=== PATIENT | male | born 1995 | race Caucasian/White ===

== ENCOUNTER 2020-11-16 04:27 | Inpatient (IN) ==
[2020-11-16 06:47] LABS: Influenza A PCR Negative (Negative); Influenza B PCR Negative (Negative); Resp. Syncytial Virus PCR Negative (Negative)
[2020-11-16 06:48] LABS: SARS-CoV-2 by PCR (In House) Negative (Negative)
[2020-11-16] MEDS ORDERED: *HR* LORazepam 1 MG TABLET PO PRN (11:15)
[2020-11-16] MEDS ORDERED: haloperidoL 5 MG TABLET PO PRN (11:15)
[2020-11-16] MEDS ORDERED: Mag Hydrox/Al Hydrox/Simeth 30 ML UDC PO PRN (11:15)
[2020-11-16] MEDS ORDERED: *HR* LORazepam 2 MG/ML VIAL IM PRN (11:15)
[2020-11-16] MEDS ORDERED: traZODone 50 MG TABLET PO PRN (11:15)
[2020-11-16] MEDS ORDERED: Acetaminophen 325 MG TABLET PO PRN (11:15)
[2020-11-16] MEDS ORDERED: hydrOXYzine pamoate 25 MG CAPSULE PO PRN (11:15)
[2020-11-16] MEDS ORDERED: Haloperidol Lactate 5 MG/ML VIAL IM PRN (11:15)
[2020-11-16] MEDS ORDERED: MOM Conc 10 ML UD.LIQ PO PRN (11:15)
[2020-11-17] MEDS: FLUoxetine HCl 10 MG CAPSULE PO SCH (10:18)
[2020-11-18] MEDS: FLUoxetine HCl 10 MG CAPSULE PO SCH (09:43)
[2020-11-19] MEDS: FLUoxetine HCl 10 MG CAPSULE PO SCH (08:27)
[2020-11-19 11:39] VITALS: BP 125/68; PULSE 67; TEMP 97.3; O2SAT 100
== END 2020-11-19 12:45 | disposition home or self-care (01) | DRG 751 ==
LOC: EMEROOARM 04:27 → 1ANU 09:24
PROVIDERS: ADMIT Psychiatry & Neurology Psychiatry; ATTEND Psychiatry & Neurology Psychiatry